=== PATIENT | female | born 2000 | race African-American/Black ===

== ENCOUNTER 2020-07-30 22:10 | Emergency (ER) | payer MEDICAID ==
[~2020-07-30] VITALS: Ht 167.6 cm; Wt 57.6 kg
[2020-07-31] MEDS ORDERED: KETOROLAC TROMETH 60MG/2ML VIAL IM ONE (01:00)
[2020-07-31 01:02] VITALS: BP 99/59
== END 2020-07-31 01:57 | disposition home or self-care (01) ==
LOC: ER 22:14
DX: G43.909 Migraine, unspecified, not intractable, without status migrainosus (principal)
CPT/HCPCS: 70450; 96372; 99284; J1885

== ENCOUNTER 2023-08-14 04:00 | Emergency (ER) | payer MEDICAID ==
[~2023-08-14] VITALS: Ht 167.6 cm; Wt 65.0 kg
[2023-08-14 04:33] LABS: Urine Bacteria None Seen /hpf (None Seen); Urine WBC None Seen /hpf (0 - 5)
[2023-08-14 06:42] LABS: Urine Clarity Bloody (Clear); Urine Color Red (Yellow)
[2023-08-14 06:43] LABS: Urine Protein, UAD 3+ (Negative); Urine Urobilinogen 1 mg/dL (Negative)
[2023-08-14 06:44] LABS: Urine Blood 3+ /uL (Negative)
[2023-08-14] MEDS ORDERED: PHEN-922 PO (07:03)
[2023-08-14] MEDS ORDERED: BACDST PO (07:03)
[2023-08-14 07:21] VITALS: BP 106/69; PULSE 75; RESP 16; TEMP 97.7; O2SAT 98
== END 2023-08-14 07:25 | disposition home or self-care (01) ==
LOC: ER 04:00
DX: N39.0 Urinary tract infection, site not specified (principal)
CPT/HCPCS: 81001